=== PATIENT | female | born 1965 | race African-American/Black ===

== ENCOUNTER 2018-03-17 11:30 | Emergency (ER) | payer OTHER ==
[2018-03-17 12:36] LABS: Hemoglobin 14.2 g/dL (12.0-16.0); Mean Corpuscular HGB CONC 33.4 g/dL (32.0-36.0); Mean Corpuscular Hemoglobin 30.6 pg (27.0-31.0); Mean Corpuscular Volume 91.9 fL (78.0-98.0); Mean Platelet Volume 8.1 fL (7.4-10.4); Platelet Count 222 thou/uL (130-400); RBC Distribution Width 11.7 % (11.5-14.5); Red Blood Cell (RBC) Count 4.63 mill/uL (4.20-5.40); White Blood Cell (WBC) Count 4.1 thou/uL (4.8-10.8)
[2018-03-17 12:37] LABS: BHCG - Serum Negative (NEGATIVE); Pregs Control Background? CLEAR/WHITE (CLR/WHITE); Pregs Control Bar Appear? YES (CONTROL BAR)
[2018-03-17 12:46] LABS: ALT (SGPT) 12 U/L (8-55); AST (SGOT) 20 U/L (5-34); Albumin 4.3 g/dL (3.5-5.0); Alkaline Phosphatase 60 U/L (40-150); Anion Gap 11 mmol/L (10-20); BUN (Urea Nitrogen) 10 mg/dL (9.8-20.1); Bilirubin, Total 0.7 mg/dL (0.2-1.2); Calc. Creatinine Clearance 0 mL/min (70-130); Calcium 9.5 mg/dL (7.8-10.44); Carbon Dioxide 24 mmol/L (22-29); Chloride 108 mmol/L (98-107); Estimated GFR-MDRD 81; Globulin 3.6 g/dL (2.4-3.5); Glucose 85 mg/dL (70-105); Potassium 3.8 mmol/L (3.5-5.1); Protein, Total 7.9 g/dL (6.0-8.3); Sodium 139 mmol/L (136-145)
[2018-03-17 12:49] LABS: Troponin I Less than 0.010 ng/mL (< 0.028)
[2018-03-17 12:58] LABS: Eosinophils 4 % (0-10); Large Platelets SLIGHT; Lymphocytes 50 % (21-51); MDiff Complete? YES; Monocytes 8 % (0-10); Neutrophil 32 % (42-75); PLT Morphology Comment Appears Adequate; RBC Morphology Normal; Reactive Lymphocytes 6 % (0-10)
--- NOTE | 2018-03-17 14:25 | RAD ---
PORTABLE AP CHEST XRAY: DATE: 03/17/18. HISTORY: Syncope. FINDINGS: Loop recording device overlies the medial left mid chest. Cardiac silhouette an pulmonary vasculatur e are within normal limits for the portable technique of the study. The lungs are clear. Osseous st ructures are intact. IMPRESSION: No acute cardiopulmonary process. POS: [facility]
== END 2018-03-17 11:40 | disposition home or self-care (01) ==
LOC: ERS 11:30
DX: R55 Syncope and collapse (principal); Z79.899 Other long term (current) drug therapy; Z79.82 Long term (current) use of aspirin
CPT/HCPCS: 71045; 80053; 82553; 84484; 84703; 85025; 93005